=== PATIENT | male | born 1970 | race Caucasian/White ===

== ENCOUNTER 2017-08-10 15:50 | Emergency (ER) | payer OTHER ==
[~2017-08-10 15:50] MED LIST: CEP500 PO; PER PO
[2017-08-10] MEDS ORDERED: DIPHTH/TETANUS/ACEL. PERTUSSIS IM ONLY ONE (16:05)
--- NOTE | 2017-08-10 16:05 | ER Report ---
History and Physical Time Seen By MD: 16:02 Hx. of Stated Complaint: PATIENT CUT THUMB ON A TABLE SAW HPI/ROS CHIEF COMPLAINT: Laceration HISTORY OF PRESENT ILLNESS: Otherwise healthy 47-year-old male was working on a table saw where he was cutting a very small piece of wooden end up having a laceration to his thumb nondominant left hand no other injury noted REVIEW OF SYSTEMS: Respiratory: No cough, no dyspnea. Cardiovascular: No chest pain, no palpitations. Gastrointestinal: No vomiting, no abdominal pain. Musculoskeletal: Laceration palmar aspect left thumb Remainder of the 14 system rev: Yes Allergies: Coded Allergies: Penicillins (Verified Allergy, Mild, 08/03/10) Home Meds Reported Medications Cephalexin Monohydrate (Keflex) 500 Mg Cap, 500 MG PO TID, #30 0 Refills 08/03/10 Oxycodone/Acetaminophen (OXYCODONE/ACETAMINOPHEN 5MG/325 MG) 5 Mg/325 Mg Tab, 1 TAB PO Q4-6H, #15 0 Refills 08/03/10 Reviewed Nurses Notes: Yes Old Medical Records Reviewed: Yes Hx Smoking: No Hx Substance Use Disorder: No Hx Alcohol Use: No Constitutional Vital Sign - Last 24 Hours 08/10/17 15:54 Temp 98.3 Pulse 70 Resp 20 B/P (MAP) 135/91 Pulse Ox 97 O2 Delivery Room Air Physical Exam General appearance: Alert no distress. Respiratory: Chest is non tender, lungs are clear to auscultation. Cardiac: Regular rate and rhythm [ ] Left hand thumb examination examination of left thumb demonstrates a 4.5 cm linear laceration gaping palmar aspect of the left hand nondominant neurovascularly intact laceration shows about a 1 cm gaping just on the proximal lateral aspect of the nailbed full flexion of the PIP and the MCP joint neurovascular intact otherwise unremarkable DIFFERENTIAL DIAGNOSIS: After history and physical exam differential diagnosis was considered for laceration of the thumb Medical Decision Making ED Course/Re-evaluation ED Course ED clinical course 47 show male cut his thumb on a table saw Procedural note anesthesia of the thumb patient had the his dominant physician a digital block was performed with lidocaine without epinephrine 2 mL placed on either side and the neurovascular bundle with good anesthesia Procedural note wound was cleaned copiously irrigated once anesthesia was obtained x-rays were performed demonstrate no foreign body with a small distal tuft fracture of 3-0 nylon was utilized to PS3 5 interrupted sutures were placed with good adhesion and good cosmesis patient tolerated well sterile dressing applied Patient will be discharged with follow-up in 8-10 days for suture removal started antibiotics due to the distal tuft fracture in the day diagnostic of an open fracture as well as we'll prescribe pain medication patient be following up accordingly Decision to Disposition Date: Aug 10, 2017 Decision to Disposition Time: 16:56 Depart Departure Latest Vital Signs Vital Signs Date Time Temp Pulse Resp B/P (MAP) Pulse Ox O2 Delivery O2 Flow Rate FiO2 08/10/17 15:54 98.3 70 20 135/91 97 Room Air Impression: Primary Impression: Laceration Condition: Improved Disposition: HOME OR SELF-CARE Referrals: LUPILLO RAY MD (PCP) 10 Days New Scripts Sulfamethoxazole/Trimet 800-160 Mg Tab (BACTRIM DS TABLET) 1 Each Tablet 1 TAB PO Q12H for 7 Days, #14 MG 0 Refills TAKE ONE TABLET BY MOUTH EVERY TWELVE HOURS Prov: ALIYA FALLON MD 08/10/17 Patient Instructions: Acute Wound Care (DC) ALIYA FALLON MD Aug 10, 2017 16:05
[2017-08-10 16:30] VITALS: BP 123/86
--- NOTE | 2017-08-10 16:41 | RADIOLOGY IMAGING REPORT ---
FACILITY: [facility] - [place] PATIENT NAME: Franki Jones : 1970 MR: [id number] V: [id number] EXAM DATE: ORDERING PHYSICIAN: ALIYA FALLON TECHNOLOGIST: Location: [facility] [place] Patient: Franki Jones : 1970 Visit/Account:[id number] Date of Sevice: 08/10/2017 Exam type: HAND LIMITED LEFT History: Trauma, thumb with table saw Comparison: None. Findings: Two views the left hand reveal soft tissue laceration along the distal aspect of the left thumb. The re appears to be a small defect in the distal tuft of the distal phalanx, likely representing a small fracture. The IP joint appears in good position. No radiopaque soft tissue foreign bodies are seen IMPRESSION: 1. Soft tissue laceration along the distal aspect the left thumb There appears to be a small defect in the distal tuft of the distal phalanx, likely representing smal l fracture Report Dictated By: Chioma Nina MD at 08/10/2017 4:36 PM Report E-Signed By: Chioma Nina MD at 08/10/2017 4:37 PM WSN:[email or web address]
[2017-08-10] MEDS ORDERED: SULF-198 PO (16:58)
== END 2017-08-10 17:08 | disposition home or self-care (01) ==
LOC: ER 16:04
DX: S61.012A Laceration without foreign body of left thumb without damage to nail, initial encounter (principal); W29.8XXA Contact with other powered hand tools and household machinery, initial encounter
CPT/HCPCS: 90471; 90715; 99283